=== PATIENT | male | born 1995 | race Caucasian/White ===

== ENCOUNTER 2025-03-07 02:20 | Emergency (ER) | payer OTHER ==
[~2025-03-07] VITALS: Ht 177.8 cm; Wt 68.8 kg
--- OUTSIDE RECORDS SUMMARY | 2025-03-07 02:21 | XMS ---
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 Mary has no Care Guidelines for this patient. Natalie VISIT COUNT (12 MO.) 2 TA[facility] TOTAL 2 NOTE: Visits indicate total known visits. ED/C VISIT TRACKING (12 MO.) 03/07/2025 02:21 [facility] TYPE: Emergency COMPLAINT: - MEDICAL CLEARANCE 08/25/2024 15:13 [facility] TYPE: Emergency COMPLAINT: - DENTAL PROBLEM INPATIENT VISIT TRACKING (12 MO.) No inpatient visits to display in this time frame [email or web address]
[2025-03-07 03:12] VITALS: BP 142/87
== END 2025-03-07 03:13 | disposition home or self-care (01) ==
LOC: ED 02:20
DX: Z02.89 Encounter for other administrative examinations (principal)
CPT/HCPCS: 74176